=== PATIENT | female | born 1975 | race African-American/Black ===

== ENCOUNTER 2018-05-30 10:40 | Emergency (ER) | payer SELFPAY ==
[~2018-05-30] VITALS: Ht 162.6 cm; Wt 74.8 kg
[2018-05-30 11:11] VITALS: BP 117/83
== END 2018-05-30 13:06 | disposition home or self-care (01) ==
LOC: ER 10:40
DX: Z32.01 Encounter for pregnancy test, result positive (principal)
CPT/HCPCS: 36415; 84702